=== PATIENT | female | born 2000 | race Caucasian/White ===

== ENCOUNTER 2025-02-22 00:43 | Emergency (ER) | payer OTHER ==
[~2025-02-22] VITALS: Ht 175.3 cm; Wt 60.9 kg
[2025-02-22] MEDS ORDERED: BENZ200C70 PO (03:17)
[2025-02-22] MEDS: BENZONATATE 100MG CAPSULE PO ONE (03:42)
[2025-02-22 03:48] VITALS: BP 118/80; TEMP 98.2; O2SAT 99
== END 2025-02-22 03:49 | disposition home or self-care (01) ==
LOC: M ED 00:43
DX: R07.0 Pain in throat (principal); B34.8 Other viral infections of unspecified site; F17.290 Nicotine dependence, other tobacco product, uncomplicated; Z91.89 Other specified personal risk factors, not elsewhere classified; Z91.040 Latex allergy status